=== PATIENT | male | born 1980 | race African-American/Black ===

== ENCOUNTER 2016-08-05 16:25 | Emergency (ER) | payer SELFPAY ==
[~2016-08-05] VITALS: Ht 175.3 cm; Wt 88.3 kg
[~2016-08-05 16:25] MED LIST: FIORICET WI1 CAPSULE PO
[2016-08-05] MEDS ORDERED: FIORICET 50-301 EACH PO (19:49)
[2016-08-05] MEDS ORDERED: MOTRIN800 MG PO (19:49)
[2016-08-05] MEDS ORDERED: VALIUM5 MG PO (19:52)
[2016-08-05 20:18] VITALS: BP 128/81
== END 2016-08-05 20:24 | disposition home or self-care (01) ==
LOC: EME 16:25
DX: G44.009 Cluster headache syndrome, unspecified, not intractable (principal); S60.021A Contusion of right index finger without damage to nail, initial encounter; I10 Essential (primary) hypertension; W22.09XA Striking against other stationary object, initial encounter
CPT/HCPCS: 73140; 99281; 99285; J1885

== ENCOUNTER 2016-08-11 21:21 | Emergency (ER) | payer OTHER ==
[~2016-08-11] VITALS: Ht 175.3 cm; Wt 89.8 kg
[~2016-08-11 21:21] MED LIST changes: +FIORICET 50-301 EACH PO; +MOTRIN800 MG PO; +VALIUM5 MG PO
[2016-08-11] MEDS ORDERED: HYDROXYZINE HCL25 MG PO (22:11)
[2016-08-11] MEDS ORDERED: MEDROL DOSEPAK4 MG PO (22:11)
[2016-08-11] MEDS ORDERED: ELIMITE 5% CREA60 GM TP (22:11)
[2016-08-11 22:32] VITALS: BP 135/62
== END 2016-08-11 22:33 | disposition home or self-care (01) ==
LOC: EME 21:21
DX: B86 Scabies (principal)
CPT/HCPCS: 99281; 99284; J7512; Q0177

== ENCOUNTER 2016-08-17 16:23 | Emergency (ER) | payer OTHER ==
[~2016-08-17] VITALS: Ht 175.3 cm; Wt 86.9 kg
[~2016-08-17 16:23] MED LIST changes: +ELIMITE 5% CREA60 GM TP; +HYDROXYZINE HCL25 MG PO; +MEDROL DOSEPAK4 MG PO
[2016-08-17] MEDS ORDERED: PERCOCET 5/31 TABLET PO ×2 (18:05→18:13)
[2016-08-17] MEDS ORDERED: GRALISE300 MG PO (18:05)
[2016-08-17] MEDS ORDERED: PERCOCET 10/1 TABLET PO (18:13)
[2016-08-17 18:36] VITALS: BP 137/95
== END 2016-08-17 18:39 | disposition home or self-care (01) ==
LOC: EME 16:23
DX: G89.29 Other chronic pain (principal); M79.642 Pain in left hand; Z76.0 Encounter for issue of repeat prescription; Z89.012 Acquired absence of left thumb
CPT/HCPCS: 99281; 99283

== ENCOUNTER 2016-08-18 22:58 | Emergency (ER) | payer OTHER ==
[~2016-08-18] VITALS: Ht 175.3 cm; Wt 88.8 kg
[~2016-08-18 22:58] MED LIST changes: +GRALISE300 MG PO; +PERCOCET 10/1 TABLET PO; +PERCOCET 5/31 TABLET PO
[2016-08-18 23:51] LABS: HEMATOCRIT 44.3 % (38.0-50.0); MCH 30.3 PG (29.0-34.0); MCHC 33.6 G/DL (30.0-36.0); MCV 90.2 FL (86-99); MEAN PLAT.VOLUME 9.5 uM^3 (9.0-12.4); PLATELET COUNT 233 K/uL (156-360); RBC DIS.WIDTH-CV 11.7 % (11.8-14.6); RBC DIS.WIDTH-SD 38.6 % (39-53); RED BLOOD COUNT 4.91 M/uL (4.00-5.50); WHITE BLOOD COUNT 11.3 K/uL (4.1-10.2)
[2016-08-19 00:01] LABS: CHLORIDE 101 mEq/L (99-109); POTASSIUM 3.3 mEq/L (3.7-5.4); SODIUM 140 mEq/L (136-147)
[2016-08-19 00:03] LABS: GLUCOSE 112 mg/dL (70-99)
[2016-08-19 00:04] LABS: ANION GAP 12 MEQ/L (2-14)
[2016-08-19 00:06] LABS: SERUM ETHYL ALCOHOL < 10 mg/dL
[2016-08-19 00:07] LABS: GFR ESTIMATE (CALCULATED) > 59 mL/min/
[2016-08-19 00:08] LABS: UREA NITROGEN (BUN) 23 mg/dL (9-23)
[2016-08-19] MEDS ORDERED: FIORICET,ESG1 TABLET PO (01:32)
[2016-08-19 01:57] VITALS: BP 128/61
== END 2016-08-19 01:58 | disposition home or self-care (01) ==
LOC: EME → EDBD 22:58 → EME 08-19 01:58
PROVIDERS: Emergency Medicine
DX: R51 Headache (principal); G43.909 Migraine, unspecified, not intractable, without status migrainosus; F17.200 Nicotine dependence, unspecified, uncomplicated; E87.6 Hypokalemia; R11.0 Nausea
CPT/HCPCS: 80048; 81003; 85027; 99281; 99285; G0480; J0780; J1200; J1885; J7030